=== PATIENT | female | born 1965 | race Caucasian/White ===

== ENCOUNTER 2016-12-05 09:22 | Day surgery (SDC) | payer MEDICARE ==
--- NOTE | ~2016-12-05 | EGD ---
EGD REPORT [facility] [address] [address] NAME: KARYN DOLL : [birth year] STATUS : REG [facility] [place] PAT#: [id number] AGE: 51 ADM/REG DATE : 12/05/16 MR#: [id number] REPORT SERV DATE: 12/05/16 DICTATED BY: SIMA CASTLE DATE: 12/05/16 REPORT STATUS : Draft TRANSCRIBED BY: [facility] DATE: 12/05/16 Endoscopy Center Patient Name: Karyn Doll Date of : 1965 Attending MD: SIMA CASTLE MD Procedure Date No Time: 12/05/2016 Procedure: Colonoscopy Indications: Colon cancer screening in patient at increased risk: Colorectal cancer in multiple 2nd degree relatives Referring MD: BRENNA ALEX Medicines: Monitored Anesthesia Care Complications: No immediate complications. Procedure: Pre-Anesthesia Assessment: - ASA Grade Assessment: III - A patient with severe systemic disease. After I obtained informed consent, the scope was passed under direct vision. Throughout the procedure, the patient's blood pressure, pulse, and oxygen saturations were monitored continuously. The CF [id number] was introduced through the anus and advanced to the cecum, identified by appendiceal orifice and ileocecal valve. The colonoscopy was performed without difficulty. The patient tolerated the procedure well. The quality of the bowel preparation was good. Findings: The digital rectal exam was normal. Pertinent negatives include no palpable rectal lesions. A sessile polyp was found in the descending colon. The polyp was 10 mm in size. The polyp was removed with a cold snare. Resection and retrieval were complete. A sessile polyp was found in the transverse colon. The polyp was 7 mm in size. The polyp was removed with a cold snare. Resection and retrieval were complete. Three sessile polyps were found in the sigmoid colon. The polyps were 3 to 5 mm in size. These polyps were removed with a cold biopsy forceps. Resection and retrieval were complete. A sessile polyp was found in the rectum. The polyp was 4 mm in size. The polyp was removed with a cold biopsy forceps. Resection and retrieval were complete. Hemorrhoids were found during retroflexion and were mild. Impression: - One 10 mm polyp in the descending colon. Resected and retrieved. - One 7 mm polyp in the transverse colon. Resected and EGD REPORT [address] [place]. [address] NAME: KARYN DOLL : [birth year] STATUS : REG [facility]#: [id number] AGE: 51 ADM/REG DATE : 12/05/16 MR#: [id number] REPORT SERV DATE: 12/05/16 DICTATED BY: SIMA CASTLE DATE: 12/05/16 REPORT STATUS : Draft TRANSCRIBED BY: [employer] [facility] DATE: 12/05/16 retrieved. - Three 3 to 5 mm polyps in the sigmoid colon. Resected and retrieved. - One 4 mm polyp in the rectum. Resected and retrieved. - Hemorrhoids. Recommendation: - Patient has a contact number available for emergencies. The signs and symptoms of potential delayed complications were discussed with the patient. Return to normal activities tomorrow. Written discharge instructions were provided to the patient. - Regular diet. - Continue present medications. - Repeat colonoscopy in 3 - 5 years for surveillance based on pathology results. - Return to GI clinic PRN. Procedure Code(s): --- Professional --- 62020, Colonoscopy, flexible, proximal to splenic flexure; with removal of tumor(s), polyp(s), or other lesion(s) by snare technique 28925, 59, Colonoscopy, flexible, proximal to splenic flexure; with biopsy, single or multiple Diagnosis Code(s): --- Professional --- K62.1, Rectal polyp D12.5, Benign neoplasm of sigmoid colon D12.3, Benign neoplasm of transverse colon D12.4, Benign neoplasm of descending colon K64.9, Unspecified hemorrhoids Z12.11, Encounter for screening for malignant neoplasm of colon Z80.0, Family history of malignant neoplasm of digestive organs CPT copyright 2013 [employer]. All rights reserved. The codes documented in this report are preliminary and upon recreational vehicle resort manager review may be revised to meet current compliance requirements. SIMA CASTLE MD 12/05/2016 11:46 AM This report has been signed electronically. Number of Addenda: 0 EGD REPORT [facility] [address] [address] NAME: KARYN DOLL : [birth year] STATUS : REG [facility] [place] PAT#: [id number] AGE: 51 ADM/REG DATE : 12/05/16 MR#: [id number] REPORT SERV DATE: 12/05/16 DICTATED BY: SIMA CASTLE DATE: 12/05/16 REPORT STATUS : Draft TRANSCRIBED BY: [employer] [facility] DATE: 12/05/16 Note Initiated On: 12/05/2016 11:03 AM Scope Withdrawal Time 0 hours 11 minutes 53 seconds [address] [id number]
--- NOTE | ~2016-12-05 | EGD ---
EGD REPORT [facility] [address] [address] NAME: KARYN DOLL : 61 STATUS : REG [facility]#: [id number] AGE: 51 ADM/REG DATE : 12/05/16 MR#: [id number] REPORT SERV DATE: 12/05/16 DICTATED BY: SIMA CASTLE DATE: 12/05/16 REPORT STATUS : Draft TRANSCRIBED BY: [facility] DATE: 12/05/16 Endoscopy Center Patient Name: Karyn Doll Date of : 1965 Attending MD: SIMA CASTLE MD Procedure Date No Time: 12/05/2016 Procedure: Upper GI endoscopy Indications: Dysphagia, Suspected esophageal reflux, Nausea Referring MD: BRENNA ALEX Medicines: Monitored Anesthesia Care Complications: No immediate complications. Procedure: Pre-Anesthesia Assessment: - ASA Grade Assessment: III - A patient with severe systemic disease. After obtaining informed consent, the endoscope was passed under direct vision. Throughout the procedure, the patient's blood pressure, pulse, and oxygen saturations were monitored continuously. The GIF [id number] was introduced through the mouth, and advanced to the second part of duodenum. The upper GI endoscopy was accomplished without difficulty. The patient tolerated the procedure well. Findings: The Z-line was irregular and was found at the gastroesophageal junction. Biopsies were taken with a cold forceps for histology. No endoscopic abnormality was evident in the esophagus to explain the patient's complaint of dysphagia. It was decided, however, to proceed with dilation of the entire esophagus. A guidewire was placed and the scope was withdrawn. Dilation was performed with a Savary dilator with no resistance at 48 Fr. The entire examined stomach was normal. The cardia and gastric fundus were normal on retroflexion. The duodenal bulb and 2nd part of the duodenum were normal. Impression: - Z-line irregular, at the gastroesophageal junction. Biopsied. - No endoscopic esophageal abnormality to explain patient's dysphagia. Esophagus dilated. Dilated. - Normal stomach. - Normal duodenal bulb and 2nd part of the duodenum. Recommendation: - Follow an antireflux regimen. - Continue present medications. - Await pathology results. EGD REPORT [address] [address] NAME: KARYN DOLL : [birth year] STATUS : REG [facility] [place] [place] PAT#: [id number] AGE: 51 ADM/REG DATE : 12/05/16 MR#: [id number] REPORT SERV DATE: 12/05/16 DICTATED BY: SIMA CASTLE DATE: 12/05/16 REPORT STATUS : Draft TRANSCRIBED BY: [employer] DATE: 12/05/16 Procedure Code(s): --- Professional --- 12083, Esophagogastroduodenoscopy, flexible, transoral; with insertion of guide wire followed by passage of dilator(s) through esophagus over guide wire 57185, Esophagogastroduodenoscopy, flexible, transoral; with biopsy, single or multiple Diagnosis Code(s): --- Professional --- K22.8, Other specified diseases of esophagus R13.10, Dysphagia, unspecified R11.0, Nausea CPT copyright 2013 [employer]. All rights reserved. The codes documented in this report are preliminary and upon tunnel worker review may be revised to meet current compliance requirements. SIMA CASTLE MD 12/05/2016 11:22 AM This report has been signed electronically. Number of Addenda: 0 Note Initiated On: 12/05/2016 11:06 AM Scope Withdrawal Time 0 hours 0 minutes 0 seconds [id number] [id number]
[~2016-12-05 09:22] MED LIST: AVAP150 PO; PRAVACHOL40 MG PO; PRILO PO
== END 2016-12-05 23:59 | disposition home or self-care (01) ==
LOC: DMU 09:22
PROVIDERS: Internal Medicine Gastroenterology
PROC: 0DBP8ZZ Excision of Rectum, Via Natural or Artificial Opening Endoscopic (ICD-10-PCS; 2016-12-05)
PROC: 0DBN8ZZ Excision of Sigmoid Colon, Via Natural or Artificial Opening Endoscopic (ICD-10-PCS; 2016-12-05)
PROC: 0DBL8ZZ Excision of Transverse Colon, Via Natural or Artificial Opening Endoscopic (ICD-10-PCS; 2016-12-05)
PROC: 0D758ZZ Dilation of Esophagus, Via Natural or Artificial Opening Endoscopic (ICD-10-PCS; principal; 2016-12-05 11:00)
PROC: 0DB48ZX Excision of Esophagogastric Junction, Via Natural or Artificial Opening Endoscopic, Diagnostic (ICD-10-PCS; 2016-12-05 11:00)
PROC: 0DBM8ZZ Excision of Descending Colon, Via Natural or Artificial Opening Endoscopic (ICD-10-PCS; 2016-12-05 11:00)
DX: Z12.11 Encounter for screening for malignant neoplasm of colon (principal); D12.4 Benign neoplasm of descending colon; K63.5 Polyp of colon; K62.1 Rectal polyp; K20.9 Esophagitis, unspecified; K64.9 Unspecified hemorrhoids; I10 Essential (primary) hypertension; J45.909 Unspecified asthma, uncomplicated; E78.00 Pure hypercholesterolemia, unspecified; E11.9 Type 2 diabetes mellitus without complications; E66.01 Morbid (severe) obesity due to excess calories; Z68.42 Body mass index [BMI] 45.0-49.9, adult; Z79.899 Other long term (current) drug therapy; Z88.0 Allergy status to penicillin; Z88.2 Allergy status to sulfonamides; Z88.5 Allergy status to narcotic agent; Z88.1 Allergy status to other antibiotic agents; Z91.040 Latex allergy status; Z91.09 Other allergy status, other than to drugs and biological substances; Z88.8 Allergy status to other drugs, medicaments and biological substances
CPT/HCPCS: 82962; 88305; 88342